=== PATIENT | female | born 1960 | race Caucasian/White ===

== ENCOUNTER → 2024-09-03 10:03 | Outpatient (CLI) | payer MEDICARE, OTHER, SELFPAY ==
[2024-09-03 19:40] LABS: Add Manual Diff / Slide Review NO; Hematocrit 35.8 % (36-46); Hemoglobin 12.3 g/dL (12.0-16.0); Lymphocytes Absolute Auto 1300 /uL (1100-4500); Mean Corpuscular HGB Conc 34.4 % (30-36); Mean Corpuscular Hemoglobin 31.2 PG (26-34); Mean Corpuscular Volume 90.7 fL (80-100); Platelet Count 201 X10^3/uL (150-400)
[2024-09-03 19:47] LABS: Cholesterol 134 mg/dL (140-199); HDL Cholesterol 70 mg/dL (40-60); Triglycerides 91 mg/dL (35-150)
[2024-09-03 20:01] LABS: Hemoglobin A1C% w Est Avg Glu 7.7 % (4.0-6.0)
[2024-09-03 20:05] LABS: Free T3, Triiodothyronine Free 3.86 pg/mL (2.77-5.27)
[2024-09-03 20:19] LABS: TSH w/ Reflex to FT4 3.00 uIU/mL (0.47-4.68)
[2024-09-03 20:43] LABS: Microalbumi Creatinin Ratio Ur 16.0 ug/mg CR (<30)
== END ==
PROVIDERS: PCP Physician Assistant Medical; Visit Provider Physician Assistant Medical
DX: R45.86 Emotional lability (principal); Z13.6 Encounter for screening for cardiovascular disorders; E03.9 Hypothyroidism, unspecified; E11.9 Type 2 diabetes mellitus without complications; E07.9 Disorder of thyroid, unspecified
CPT/HCPCS: 80061; 82043; 82570; 83036; 84443; 84481; 85025